=== PATIENT | female | born 1995 | race Caucasian/White ===

== ENCOUNTER 2017-09-04 07:55 | Day surgery (SDC) | payer OTHER ==
[~2017-09-04 07:55] MED LIST: Lactated Ringers 1,000 ML IV SCH; Sodium Chloride 0.9% 10 ML Syringe FLUSH PRN; Sodium Chloride 0.9% 2.5 ML Syringe FLUSH PRN; ceFAZolin 2 GM in Premix Bag 1 BAG IV ONE
--- NOTE | 2017-09-04 08:12 | PCM.PREANE ---
Preanesthetic Assessment - Anesthesia/Transfusion/Family Hx Anesthesia History: Prior Anesthesia Without Reaction Family History of Anesthesia Reaction: No Transfusion History: No Prior Transfusion(s) - Review of Systems General: No Symptoms Pulmonary: No Symptoms Cardiovascular: No Symptoms Gastrointestinal: No Symptoms Neurological: No Symptoms Other: Reports: None - Physical Assessment NPO Status Date: 09/03/17 Height: 1.73 m Weight: 84.822 kg ASA Class: 1 Mental Status: Alert & Oriented x3 Airway Class: Mallampati = 1 Dentition: Reports: Normal Dentition ROM/Head Extension: Full Lungs: Clear to Auscultation, Normal Respiratory Effort Cardiovascular: Regular Rate, Regular Rhythm - Allergies Allergies/Adverse Reactions: Allergies Allergy/AdvReac Type Severity Reaction Status Date / Time No Known Allergies Allergy Verified 09/01/17 11:08 - Anesthesia Plan Pre-Op Medication Ordered: None (PLAN: GA_LMA) - Acknowledgements Anesthesia Type Planned: General Anesthesia Pt an Appropriate Candidate for the Planned Anesthesia: Yes Alternatives and Risks of Anesthesia Discussed w Pt/Guardian: Yes Pt/Guardian Understands and Agrees with Anesthesia Plan: Yes PreAnesthesia Questionnaire Other Gastrointestinal History: hx colitis Neurological History: Reports: Concussion - Past Surgical History Head Surgeries/Procedures: Reports: None GI Surgical History: Reports: Appendectomy - SUBSTANCE USE Smoking Status *Q: Never Smoker Recreational Drug Use History: No - HOME MEDS Home Medications: Home Meds L.acidoph,Paracasei, B.lactis [Probiotic] 1 tab PO ASDIRECTED 09/01/17 [History] Methylcellulose [Fiber] 2 tab PO DAILY 09/01/17 [History] Polyethylene Glycol 3350 [Miralax] 1 dose PO ASDIRECTED 09/01/17 [History] - CURRENT (IN HOUSE) MEDS Current Meds: Current Medications Lactated Ringer's (Ringers, Lactated) 1,000 mls @ 125 mls/hr IV ASDIRECTED [facility] Sodium Chloride (Saline Flush) 10 ml FLUSH ASDIRECTED PRN PRN Reason: Keep Vein Open Sodium Chloride (Saline Flush) 2.5 ml FLUSH ASDIRECTED PRN PRN Reason: Keep Vein Open Discontinued Medications Cefazolin Sodium/Dextrose 2 gm (/ Premix) 50 mls @ 100 mls/hr IV ONETIME ONE Stop: 09/03/17 09:16
[2017-09-04] MEDS ORDERED: Propofol 200 MG/20 ML SDV ONE (08:23)
[2017-09-04] MEDS ORDERED: Lidocaine 2% 5 ML SDV ONE (08:23)
[2017-09-04] MEDS ORDERED: fentaNYL 100 MCG/2 ML SDV ONE (08:23)
[2017-09-04] MEDS ORDERED: Midazolam 1 MG/ML 2 ML SDV ONE (08:23)
[2017-09-04] MEDS ORDERED: ceFAZolin/Dextrose,Iso-Osmotic 2 GM/50 ML Duplex Bag IV ONE (08:48)
[2017-09-04] MEDS ORDERED: ceFAZolin 1 GM Vial ONE (08:52)
[2017-09-04] MEDS ORDERED: Bupivacaine 0.5% 10 ML SDV ONE (08:52)
[2017-09-04] MEDS ORDERED: Glycopyrrolate 0.2 MG/ML SDV ONE ×2 (09:19→09:25)
[2017-09-04] MEDS ORDERED: fentaNYL 100 MCG/2 ML SDV IVPUSH PRN (09:35)
--- NOTE | 2017-09-04 10:05 | PCM.OPNOTE ---
- General Post-Op/Procedure Note Date of Surgery/Procedure: 09/04/17 Operative Procedure(s): Excision left lower quadrant mass Findings: 4.5 x 4 cm firm rubbery mass attached to the fascia by a non-absorbable suture. Pre Op Diagnosis: Left lower quadrant mass Post-Op Diagnosis: same Anesthesia Technique: General LMA Primary Surgeon: Alison Cyr Pathology: left lower quadrant mass Fluid Replacement, Intraop: 900 EBL in mLs: 10 Condition: Good
--- NOTE | 2017-09-04 10:42 | PCM.POSTAN ---
POST ANESTHESIA ASSESSMENT - MENTAL STATUS Mental Status: Alert, Oriented - RESPIRATORY Respiratory Status: Respiratory Rate WNL, Airway Patent, O2 Saturation Stable - CARDIOVASCULAR CV Status: Pulse Rate WNL, Blood Pressure Stable - GASTROINTESTINAL GI Status: No Symptoms - POST OP HYDRATION Hydration Status: Adequate & Stable
--- NOTE | 2017-09-04 13:48 | PCM48HPAN ---
Post Anesthesia Note - EVALUATION WITHIN 48HRS OF ANESTHETIC Vital Signs in Normal Range: Yes Patient Participated in Evaluation: Yes Respiratory Function Stable: Yes Airway Patent: Yes Cardiovascular Function Stable: Yes Hydration Status Stable: Yes Pain Control Satisfactory: Yes Nausea and Vomiting Control Satisfactory: Yes Mental Status Recovered: Yes Resp Rate: 14
--- NOTE | 2017-09-04 14:44 | OR ---
SURGEON: EVELYN GIRON MD DATE OF PROCEDURE: 09/04/2017 PREOPERATIVE DIAGNOSIS: Left lower quadrant abdominal wall mass. POSTOPERATIVE DIAGNOSIS: Left lower quadrant abdominal wall mass. PROCEDURE PERFORMED: Excision of left lower quadrant abdominal wall mass. ANESTHESIA: General LMA. FLUIDS: 900 mL crystalloid. ESTIMATED BLOOD LOSS: 10 mL. FINDINGS: 4.5 x 4 cm firm rubbery mass attached to the fascia at previous incision site. The base of this mass contained a nonabsorbable suture. COMPLICATIONS: None. INDICATIONS: The patient is a 22-year-old female, who has had a left lower quadrant mass ever since an appendectomy. Her postoperative course was complicated by sepsis. Approximately a month to two after this ordeal, she noticed the left lower quadrant mass. It has stayed the same size, but is bothersome and she would like to know what it is. Preoperative imaging showed an area of fatty appearing tissue in the area of concern. It was questionable whether or not this was an incisional hernia. A CT of the abdomen and pelvis just showed some abnormal fat in the subcutaneous tissues, but no hernia. The patient and I discussed possible options for workup and treatment. The patient wanted to undergo excision of the left lower quadrant mass. I consented her for a possible incisional hernia repair versus just an excision of the mass. We discussed the procedure, expected perioperative course, and risks including bleeding, infection, or damage to surrounding structures. The patient verbalized understanding and wishes to proceed. PROCEDURE IN DETAIL: The patient was brought to the operating room and placed on the OR table in supine position. A time-out was completed verifying the patient's name, age, date of , allergies, and procedure to be performed. General LMA anesthesia was induced. The abdomen was prepped and draped in usual standard fashion. The patient and I had previously marked out the area of the mass. I anesthetized the area over the mass with 0.5% Marcaine plain. A 5 cm incision was made overlying this mass. Cautery was used to dissect down the level of the subcutaneous fat. As I got closer to the fascia, I could feel a hard rubbery mass. Using a combination of cautery and Metzenbaum scissors, I sharply dissected the mass free from the surrounding structures. At the level of the fascia, it was densely adhered to the tissues. Once I mobilized the mass adequately enough, I noticed that it was attached to the fascia at the previous incision site. I noted an old Nurolon suture at the base. I clipped this Nurolon suture and was able to free up the mass completely from its surrounding attachments. The mass itself was hard and firm and I did not open it up to explore it. It measured 4.5 x 4 cm in size. It was passed off the field and labeled as left lower quadrant mass. The area where I excised this mass from was marked with a 2-0 Prolene suture for identification in the future and to close the fascia over the site and I removed the old suture. The wound was then copiously irrigated. Cautery was used to obtain hemostasis. The wound was then closed with a running 3-0 Vicryl stitch in the subcutaneous fat layer. The more superficial fat was then closed with interrupted 3-0 Vicryl sutures. The skin was closed with a running 4-0 Monocryl stitch. The patient tolerated the procedure well and was extubated and taken to PACU in stable condition. TORRI CHAUDHARI /[id number] MARCELLA
== END 2017-09-04 11:40 | disposition home or self-care (01) ==
LOC: MW.SDS 07:55
PROVIDERS: ATTEND Surgery
DX: R22.2 Localized swelling, mass and lump, trunk (principal); K52.9 Noninfective gastroenteritis and colitis, unspecified; Z79.899 Other long term (current) drug therapy
CPT/HCPCS: 00400; 81025; 88305; J0690; J2250; J2704; J3010; J7120

== ENCOUNTER 2018-08-29 00:17 | Inpatient (IN) | payer BC ==
[2018-08-29] MEDS ORDERED: Water For Irrigation,Sterile 1,000 ML Container IRR PRN (00:29)
[2018-08-29] MEDS ORDERED: Tranexamic Acid 1,000 MG in Sodium Chloride 0.9% 100 ML IV PRN (00:29)
[2018-08-29] MEDS ORDERED: Terbutaline 1 MG/ML SDV SUBCUT PRN (00:29)
[2018-08-29] MEDS ORDERED: Lidocaine 1% 50 ML MDV INJECT PRN (00:29)
[2018-08-29] MEDS ORDERED: Ondansetron 4 MG/2 ML SDV IV PRN (00:29)
[2018-08-29] MEDS ORDERED: Sodium Chloride 0.9% 2.5 ML Syringe FLUSH PRN (00:29)
[2018-08-29] MEDS ORDERED: Methylergonovine 0.2 MG/1 ML Amp IM PRN (00:29)
[2018-08-29] MEDS ORDERED: Carboprost Tromethamine 250 MCG/1 ML Amp IM PRN (00:29)
[2018-08-29] MEDS ORDERED: Misoprostol 200 MCG Tab PO PRN (00:29)
[2018-08-29] MEDS ORDERED: Sodium Chloride 0.9% 10 ML Syringe FLUSH PRN (00:29)
[2018-08-29] MEDS ORDERED: Sodium Chloride 0.9% 10 ML SDV IV PRN (00:29)
[2018-08-29] MEDS ORDERED: Oxytocin/0.9 % Sodium Chloride 30 UNIT/500 ML BAG IV SCH ×2 (00:30)
[2018-08-29] MEDS: Misoprostol 25 MCG (1/4 of 100 MCG) Tab VAG PRN ×3 (00:59→09:26)
[2018-08-29] MEDS: Butorphanol 1 MG/ML SDV IVPUSH PRN ×3 (10:29→13:30)
[2018-08-29] MEDS: Lactated Ringers 1,000 ML IV SCH ×3 (14:24→23:07)
--- NOTE | 2018-08-29 17:04 | PCM.PREANE ---
Preanesthetic Assessment - Anesthesia/Transfusion/Family Hx Anesthesia History: Prior Anesthesia Without Reaction Family History of Anesthesia Reaction: No Transfusion History: No Prior Transfusion(s) - Review of Systems General: No Symptoms Pulmonary: No Symptoms Cardiovascular: No Symptoms Gastrointestinal: No Symptoms Neurological: No Symptoms Other: Reports: None - Physical Assessment Height: 5 ft 8 in Weight: 100.244 kg ASA Class: 2 Mental Status: Alert & Oriented x3 Airway Class: Mallampati = 2 Dentition: Reports: Normal Dentition Thyro-Mental Finger Breadths: 3 Mouth Opening Finger Breadths: 3 ROM/Head Extension: Full Lungs: Clear to Auscultation, Normal Respiratory Effort Cardiovascular: Regular Rate, Regular Rhythm - Lab Values: Laboratory Last Values WBC 9.83 K/uL (4.0-11.0) 08/29/18 00:48 RBC 4.11 M/uL (4.30-5.90) L 08/29/18 00:48 Hgb 12.3 g/dL (12.0-16.0) 08/29/18 00:48 Hct 37.1 % (36.0-46.0) 08/29/18 00:48 MCV 90.3 fL (80.0-98.0) 08/29/18 00:48 MCH 29.9 pg (27.0-32.0) 08/29/18 00:48 MCHC 33.2 g/dL (31.0-37.0) 08/29/18 00:48 RDW Std Deviation 44.3 fl (28.0-62.0) 08/29/18 00:48 RDW Coeff of Sharmila 14 % (11.0-15.0) 08/29/18 00:48 Plt Count 210 K/uL (150-400) 08/29/18 00:48 MPV 10.90 fL (7.40-12.00) 08/29/18 00:48 Nucleated RBC % 0.0 /100WBC 08/29/18 00:48 Nucleated RBCs # 0 K/uL 08/29/18 00:48 POC Glucose 78 mg/dL (60-110) 08/29/18 13:22 Blood Type A NEGATIVE 08/29/18 00:48 Antibody Screen NEGATIVE 08/29/18 00:48 - Allergies Allergies/Adverse Reactions: Allergies Allergy/AdvReac Type Severity Reaction Status Date / Time adhesive tape Allergy Hives Verified 08/29/18 00:26 - Acknowledgements Anesthesia Type Planned: Epidural Pt an Appropriate Candidate for the Planned Anesthesia: Yes Alternatives and Risks of Anesthesia Discussed w Pt/Guardian: Yes Pt/Guardian Understands and Agrees with Anesthesia Plan: Yes PreAnesthesia Questionnaire HEENT History: Reports: None Cardiovascular History: Reports: None Respiratory History: Reports: None Gastrointestinal History: Reports: GERD Other Gastrointestinal History: hx colitis Genitourinary History: Reports: None [employer] History: Reports: : 1 Para: 0 LMP (Approximate): Musculoskeletal History: Reports: None Neurological History: Reports: Concussion Psychiatric History: Reports: None Endocrine/Metabolic History: Reports: Diabetes, Gestational, Obesity/BMI 30+ Hematologic History: Reports: None Immunologic History: Reports: None Oncologic (Cancer) History: Reports: None Dermatologic History: Reports: None - Infectious Disease History Infectious Disease History: Reports: None - Past Surgical History HEENT Surgical History: Reports: Oral Surgery, Other (See Below) Other HEENT Surgeries/Procedures: wisdom teeth extraction GI Surgical History: Reports: Appendectomy Endocrine Surgical History: Reports: None Neurological Surgical History: Reports: None Dermatological Surgical History: Reports: Other (See Below) - SUBSTANCE USE Smoking Status *Q: Never Smoker Recreational Drug Use History: No - HOME MEDS Home Medications: Home Meds Acetaminophen [Tylenol Extra Strength] 1 - 2 tab PO PRN 08/29/18 [History] Docusate Sodium [Colace] 1 cap PO PRN 08/29/18 [History] Loratadine [Claritin] 1 tab PO PRN 08/29/18 [History] PNV95/Ferrous Fumarate/FA [ Tablet] 1 tab PO DAILY 08/29/18 [History] - CURRENT (IN HOUSE) MEDS Current Meds: Current Medications Butorphanol Tartrate (Stadol) 1 mg IVPUSH Q1H PRN PRN Reason: Pain Last Admin: 08/29/18 13:30 Dose: 1 mg Carboprost Tromethamine (Hemabate Ds) 250 mcg IM ASDIRECTED PRN PRN Reason: Post Hemorrhage Lactated Ringer's (Ringers, Lactated) 1,000 mls @ 150 mls/hr IV ASDIRECTED RODRIGUEZ Last Admin: 08/29/18 16:55 Dose: 150 mls/hr Oxytocin/Sodium Chloride (Oxytocin 30 Unit/500 Ml-Ns) 30 unit in 500 mls @ 500 mls/hr IV TITRATE RODRIGUEZ Oxytocin/Sodium Chloride (Oxytocin 30 Unit/500 Ml-Ns) 30 unit in 500 mls @ 2 mls/hr IV TITRATE RODRIGUEZ; Protocol Last Titration: 08/29/18 16:10 Dose: 6 munits/min, 6 mls/hr Tranexamic Acid 1,000 mg/ (Sodium Chloride) 110 mls @ 660 mls/hr IV ONETIME PRN PRN Reason: Bleeding Lidocaine HCl (Xylocaine 1%) 50 ml INJECT ONETIME PRN PRN Reason: Laceration repair Methylergonovine Maleate (Methergine) 0.2 mg IM ASDIRECTED PRN PRN Reason: Post Hemorrhage Misoprostol (Cytotec) 200 mcg PO ONETIME PRN PRN Reason: Post Hemorrhage Misoprostol (Cytotec) 25 mcg VAG Q4H PRN PRN Reason: Cervical Ripening Last Admin: 08/29/18 09:26 Dose: 25 mcg Ondansetron HCl (Zofran) 4 mg IV Q6H PRN PRN Reason: Nausea/Vomiting Sodium Chloride (Saline Flush) 10 ml FLUSH ASDIRECTED PRN PRN Reason: Keep Vein Open Sodium Chloride (Saline Flush) 2.5 ml FLUSH ASDIRECTED PRN PRN Reason: Keep Vein Open Sodium Chloride (Normal Saline) 10 ml IV ASDIRECTED PRN PRN Reason: IV Use Sterile Water (Sterile Water For Irrigation) 1,000 ml IRR ASDIRECTED PRN PRN Reason: delivery Terbutaline Sulfate (Brethine) 0.25 mg SUBCUT ASDIRECTED PRN PRN Reason: Tacysystole
[2018-08-29] MEDS ORDERED: Lidocaine HCl/EPINEPHrine 5 ML IJ ONE (17:08)
--- NOTE | 2018-08-30 00:47 | PCM.OPNOTE ---
- General Post-Op/Procedure Note Date of Surgery/Procedure: 08/30/18 Operative Procedure(s): /1st MLL repaired Findings: Viable female APGARs 8, 9 weight 3540 gm. Spontaneous delivery intact placenta with 3V cord Pre Op Diagnosis: 39/4 week IUP. Gestational diabetes Post-Op Diagnosis: Same Anesthesia Technique: Epidural Primary Surgeon: Yanet Garcia EBL in mLs: 300 Complications: none known Condition: Good Free Text/Narrative:: Dictation [id number]
[2018-08-30] MEDS ORDERED: Witch Hazel Medicated Pads 40/Jar TOP PRN (00:48)
[2018-08-30] MEDS ORDERED: Lanolin 100% Cream 7 GM Tube TOP PRN (00:48)
[2018-08-30] MEDS ORDERED: Ibuprofen 400 MG Tab PO PRN (00:48)
[2018-08-30] MEDS ORDERED: Docusate Sodium 100 MG Cap PO PRN (00:48)
[2018-08-30] MEDS ORDERED: oxyCODONE 5 MG Tab PO PRN (00:48)
[2018-08-30] MEDS ORDERED: Benzocaine/Menthol 20%-0.5% Spray 78 GM Cannister TOP PRN (00:48)
[2018-08-30] MEDS ORDERED: Bisacodyl 10 MG Supp RECTAL PRN (00:48)
[2018-08-30] MEDS ORDERED: Acetaminophen 500 MG Tab PO PRN ×2 (00:48)
[2018-08-30] MEDS: Ibuprofen 800 MG Tab PO PRN ×2 (07:17→23:39)
--- NOTE | 2018-08-30 08:04 | OR ---
SURGEON: Yaent Garcia M.D. DATE OF PROCEDURE: 08/30/2018 PREOPERATIVE DIAGNOSES: 1. 39 and 4 weeks' intrauterine . 2. Induction of labor for gestational diabetes. POSTOPERATIVE DIAGNOSES: 1. 39 and 4 weeks' intrauterine . 2. Induction of labor for gestational diabetes. PROCEDURE: Spontaneous vaginal delivery, first-degree midline laceration repaired. ANESTHESIA: Epidural. ESTIMATED BLOOD LOSS: 300 mL. FINDINGS: Viable female, scores 8 at 1 minute and 9 at 5 minutes, weight of 3540 g. Spontaneous delivery, intact placenta, 3-vessel cord. DISPOSITION: Infant to [facility], mom in LDRP. PROCEDURE IN DETAIL: Shyla is a 23-year-old, , at 39 and 3 weeks' gestational age upon her admission on the faculty dean of 08/29/2018 for induction of labor for gestational diabetes. Initially, the patient was found to be closed, thick, -3; therefore, was initially initiated on Cytotec ripening after reactive NST was obtained. Glucoses were monitored throughout the induction process, remained normal except for one wich was slightly low at 64, responded nicely to some oral intake. The patient responded to 3 doses of Cytotec and mechanical dilation with cervical balloon. In the late afternoon of 08/29/2018, the balloon was extruded. She had spontaneous rupture of membranes. Clear fluid was noted. She was on Pitocin induction at this point. heart tones remained category 1. The patient continued to progress thereafter and shortly before midnight, was found to be complete, 100% effaced, +2 station. Began pushing efforts, pushed readily. Within the hour was a +3 station, I was called for delivery. Upon my arrival, the patient was placed in modified dorsal lithotomy position, was prepped and draped in the usual aseptic manner, continued with pushing efforts, and was able to deliver 's head atraumatically, spontaneously, followed by anterior shoulder, posterior shoulder, and remainder of the body without difficulty. 's oropharynx and nares were bulb suctioned. was handed off to her mother with attending nursing staff at her side. After delay, cord was clamped x2 and cut. Cord arterial, cord venous, cord blood sampling were obtained. Light pressure was applied while the placenta was delivered spontaneously intact. Vigorous fundal uterine massage was then applied while 30 units of Pitocin was delivered in 500 mL of IV fluid. Upon inspection of cervix, vaginal sidewalls, and perineum, there was found to be a first-degree midline laceration, which was repaired using 3-0 Vicryl in the usual fashion. Uterus remained firm. Hemostasis evident. Sponge count, instrument count, and needle count were correct. The patient remained in LDRP, in Nursery. KWASI / FARA /[id number] MTDD
--- NOTE | 2018-08-30 09:07 | PCM48HPAN ---
Post Anesthesia Note - EVALUATION WITHIN 48HRS OF ANESTHETIC Vital Signs in Normal Range: Yes Patient Participated in Evaluation: Yes Respiratory Function Stable: Yes Airway Patent: Yes Cardiovascular Function Stable: Yes Hydration Status Stable: Yes Pain Control Satisfactory: Yes Nausea and Vomiting Control Satisfactory: Yes Mental Status Recovered: Yes Resp Rate: 16
--- NOTE | 2018-08-30 11:05 | PCM.PNPP ---
- General Info Date of Service: 08/30/18 Functional Status: Reports: Pain Controlled, Tolerating Diet, Ambulating, Urinating - Review of Systems General: Reports: Fatigue. Denies: Fever, Weakness Pulmonary: Denies: Shortness of Breath Cardiovascular: Denies: Chest Pain, Palpitations, Lightheadedness Gastrointestinal: Reports: No Symptoms Genitourinary: Reports: No Symptoms Musculoskeletal: Reports: No Symptoms Skin: Reports: No Symptoms Neurological: Reports: No Symptoms Psychiatric: Reports: No Symptoms - General Info Date of Service: 08/30/18 - Patient Data Vital Signs - Most Recent: Last Vital Signs Temp 36.6 C 08/30/18 07:10 Pulse 76 08/30/18 07:10 Resp 16 08/30/18 09:07 BP 132/86 08/30/18 07:10 Pulse Ox 94 L 08/30/18 07:10 Weight - Most Recent: 100.244 kg I&O - Last 24 Hours: Intake & Output 08/29/18 08/30/18 08/30/18 22:59 06:59 14:59 Output Total 775 Balance -775 Lab Results - Last 24 Hours: Laboratory Results - last 24 hr 08/29/18 08/29/18 08/29/18 Range/Units 13:22 16:57 21:03 Cord ABG pH (7.18-7.38) Cord ABG Base Excess (-10--2) Cord VBG pH (7.25-7.45) Cord VBG Base Excess (-10--2) POC Glucose 78 64 74 (60-110) mg/dL Screen (NEGATIVE) RhIG Candidate? Rhogam Indicated 08/30/18 08/30/18 Range/Units 00:24 01:48 Cord ABG pH 7.159 L (7.18-7.38) Cord ABG Base Excess -8 (-10--2) Cord VBG pH 7.219 L (7.25-7.45) Cord VBG Base Excess -8 (-10--2) POC Glucose (60-110) mg/dL Screen NEGATIVE (NEGATIVE) RhIG Candidate? YES Rhogam Indicated YES, BABY RH POS H Med Orders - Current: Current Medications Acetaminophen (Tylenol Extra Strength) 500 mg PO Q4H PRN PRN Reason: Pain Acetaminophen (Tylenol Extra Strength) 1,000 mg PO Q4H PRN PRN Reason: Pain Benzocaine/Menthol (Dermoplast Pain Relief 20%-0.5% Jermyn) 78 gm TOP ASDIRECTED PRN PRN Reason: Perineal Comfort Measure Last Admin: 08/30/18 02:16 Dose: 1 can Bisacodyl (Dulcolax) 10 mg RECTAL ONETIME PRN PRN Reason: Constipation Carboprost Tromethamine (Hemabate Ds) 250 mcg IM ASDIRECTED PRN PRN Reason: Post Hemorrhage Docusate Sodium (Colace) 100 mg PO BID PRN PRN Reason: Constipation Emollient Ointment (Lansinoh Hpa) 0 gm TOP ASDIRECTED PRN PRN Reason: Sore Nipples Lactated Ringer's (Ringers, Lactated) 1,000 mls @ 150 mls/hr IV ASDIRECTED RODRIGUEZ Last Admin: 08/29/18 23:07 Dose: 150 mls/hr Oxytocin/Sodium Chloride (Oxytocin 30 Unit/500 Ml-Ns) 30 unit in 500 mls @ 500 mls/hr IV TITRATE RODRIGUEZ Oxytocin/Sodium Chloride (Oxytocin 30 Unit/500 Ml-Ns) 30 unit in 500 mls @ 2 mls/hr IV TITRATE RODRIGUEZ; Protocol Last Titration: 08/30/18 00:25 Dose: 999 mls/hr Tranexamic Acid 1,000 mg/ (Sodium Chloride) 110 mls @ 660 mls/hr IV ONETIME PRN PRN Reason: Bleeding Ibuprofen (Motrin) 400 mg PO Q4H PRN PRN Reason: Pain Ibuprofen (Motrin) 800 mg PO Q6H PRN PRN Reason: Pain Last Admin: 08/30/18 07:17 Dose: 800 mg Methylergonovine Maleate (Methergine) 0.2 mg IM ASDIRECTED PRN PRN Reason: Post Hemorrhage Ondansetron HCl (Zofran) 4 mg IV Q6H PRN PRN Reason: Nausea/Vomiting Last Admin: 08/29/18 21:09 Dose: 4 mg Oxycodone HCl (Oxycodone) 5 mg PO Q2H PRN PRN Reason: Pain Sodium Chloride (Saline Flush) 10 ml FLUSH ASDIRECTED PRN PRN Reason: Keep Vein Open Sodium Chloride (Saline Flush) 2.5 ml FLUSH ASDIRECTED PRN PRN Reason: Keep Vein Open Sodium Chloride (Normal Saline) 10 ml IV ASDIRECTED PRN PRN Reason: IV Use Sterile Water (Sterile Water For Irrigation) 1,000 ml IRR ASDIRECTED PRN PRN Reason: delivery Nathanael Jade (Tucks) 1 pad TOP ASDIRECTED PRN PRN Reason: comfort care Discontinued Medications Butorphanol Tartrate (Stadol) 1 mg IVPUSH Q1H PRN PRN Reason: Pain Stop: 08/30/18 00:47 Last Admin: 08/29/18 13:30 Dose: 1 mg Fentanyl/Bupivacaine HCl (Gmtnvbzg-Yrdwa-Yo 2 Mcg/Ml-0.125%) Confirm Administered Dose 100 mls @ as directed .ROUTE .STK-MED ONE Stop: 08/29/18 17:09 Last Admin: 08/29/18 20:33 Dose: Not Given Lidocaine HCl (Xylocaine 1%) 50 ml INJECT ONETIME PRN PRN Reason: Laceration repair Lidocaine/Epinephrine (Lidocaine 1.5%-Epi 1:200,000) Confirm Administered Dose 5 ml IJ .STK-MED ONE Stop: 08/29/18 17:09 Last Admin: 08/29/18 20:33 Dose: Not Given Misoprostol (Cytotec) 200 mcg PO ONETIME PRN PRN Reason: Post Hemorrhage Misoprostol (Cytotec) 25 mcg VAG Q4H PRN PRN Reason: Cervical Ripening Last Admin: 08/29/18 09:26 Dose: 25 mcg Terbutaline Sulfate (Brethine) 0.25 mg SUBCUT ASDIRECTED PRN PRN Reason: Tacysystole - Infant Interaction Support Person: - Recovery Exam Fundal Tone: Firm Fundal Level: At Umbilicus Fundal Placement: Midline Lochia Amount: Scant Lochia Color: Rubra/Red Perineum Description: Other (see below) Other Perinuem Description: 1st degree laceration Episiotomy/Laceration: Approximated Bladder Status: Voiding - Exam General: Alert, Oriented Lungs: Normal Respiratory Effort Cardiovascular: Regular Rate, Regular Rhythm GI/Abdominal Exam: Normal Bowel Sounds, Soft Extremities: Pedal Edema (trace). No: Ann-Marie's Sign Skin: Warm, Dry, Intact Neurological: No New Focal Deficit Psy/Mental Status: Alert, Normal Affect, Normal Mood - Problem List & Annotations (1) Vaginal delivery SNOMED Code(s): 129491710 Code(s): O80 - ENCOUNTER FOR FULL-TERM UNCOMPLICATED DELIVERY Status: Acute Current Visit: Yes - Problem List Review Problem List Initiated/Reviewed/Updated: Yes - My Orders Last 24 Hours: My Active Orders 08/30/18 00:48 Patient Status [ADT] Routine May Shower [RC] ASDIRECTED Up ad Nubia [RC] ASDIRECTED Vital Signs [RC] PER UNIT ROUTINE Acetaminophen [Tylenol Extra Strength] 1,000 mg PO Q4H PRN Acetaminophen [Tylenol Extra Strength] 500 mg PO Q4H PRN Benzocaine/Menthol [Dermoplast Pain Relief 20%-0.5% Jermyn] 78 gm TOP ASDIRECTED PRN Bisacodyl [Dulcolax] 10 mg RECTAL ONETIME PRN Docusate Sodium [Colace] 100 mg PO BID PRN Ibuprofen [Motrin] 400 mg PO Q4H PRN Ibuprofen [Motrin] 800 mg PO Q6H PRN Lanolin [Lansinoh HPA] See Dose Instructions TOP ASDIRECTED PRN Witch Kalie [Tucks] 1 pad TOP ASDIRECTED PRN oxyCODONE 5 mg PO Q2H PRN Assess Lochia [WOMSER] Per Unit Routine Assess Uterine Involution [WOMSER] Per Unit Routine Peripheral IV Discontinue [OM.PC] Routine 08/30/18 00:49 Ice Therapy [OM.PC] Per Unit Routine Perineal Care [OM.PC] Per Unit Routine Sitz Bath [OM.PC] Per Unit Routine 08/30/18 01:48 SCREEN [BBK] Routine RH IMMUNE GLOBULIN [BBK] Routine RHOGAM, [RHIG WORKUP, ] [BBK] Routine 08/30/18 12:00 HEMOGLOBIN/HEMATOCRIT,HH [HEME] Routine 08/30/18 Breakfast Regular Diet [DIET] - Assessment Assessment:: PPD 0 status post /1st MLL GDM - Plan Plan:: Continue PP cares.
--- NOTE | 2018-08-31 11:08 | PCM.PNPP ---
- General Info Date of Service: 08/31/18 Functional Status: Reports: Pain Controlled, Tolerating Diet, Ambulating, Urinating - Review of Systems General: Denies: Fever, Weakness, Fatigue Pulmonary: Denies: Shortness of Breath Cardiovascular: Denies: Chest Pain, Palpitations, Lightheadedness Gastrointestinal: Denies: Abdominal Pain, Nausea, Vomiting Genitourinary: Reports: No Symptoms Musculoskeletal: Reports: No Symptoms Skin: Reports: No Symptoms Neurological: Reports: No Symptoms Psychiatric: Reports: No Symptoms - General Info Date of Service: 08/31/18 - Patient Data Vital Signs - Most Recent: Last Vital Signs Temp 36.2 C 08/31/18 07:15 Pulse 55 L 08/31/18 07:15 Resp 16 08/31/18 07:15 BP 122/84 08/31/18 07:15 Pulse Ox 95 08/31/18 07:15 Weight - Most Recent: 100.244 kg I&O - Last 24 Hours: Intake & Output 08/30/18 08/31/18 08/31/18 22:59 06:59 14:59 Intake Total 2 Balance 2 Lab Results - Last 24 Hours: Laboratory Results - last 24 hr 08/30/18 08/30/18 Range/Units 01:48 12:12 Hgb 12.4 (12.0-16.0) g/dL Hct 37.5 (36.0-46.0) % Screen NEGATIVE (NEGATIVE) RhIG Candidate? YES Rhogam Indicated YES, BABY RH POS H Med Orders - Current: Current Medications Acetaminophen (Tylenol Extra Strength) 500 mg PO Q4H PRN PRN Reason: Pain Acetaminophen (Tylenol Extra Strength) 1,000 mg PO Q4H PRN PRN Reason: Pain Benzocaine/Menthol (Dermoplast Pain Relief 20%-0.5% [place]) 78 gm TOP ASDIRECTED PRN PRN Reason: Perineal Comfort Measure Last Admin: 08/30/18 02:16 Dose: 1 can Bisacodyl (Dulcolax) 10 mg RECTAL ONETIME PRN PRN Reason: Constipation Carboprost Tromethamine (Hemabate Ds) 250 mcg IM ASDIRECTED PRN PRN Reason: Post Hemorrhage Docusate Sodium (Colace) 100 mg PO BID PRN PRN Reason: Constipation Emollient Ointment (Lansinoh Hpa) 0 gm TOP ASDIRECTED PRN PRN Reason: Sore Nipples Lactated Ringer's (Ringers, Lactated) 1,000 mls @ 150 mls/hr IV ASDIRECTED RODRIGUEZ Last Admin: 08/29/18 23:07 Dose: 150 mls/hr Oxytocin/Sodium Chloride (Oxytocin 30 Unit/500 Ml-Ns) 30 unit in 500 mls @ 500 mls/hr IV TITRATE RODRIGUEZ Oxytocin/Sodium Chloride (Oxytocin 30 Unit/500 Ml-Ns) 30 unit in 500 mls @ 2 mls/hr IV TITRATE RODRIGUEZ; Protocol Last Titration: 08/30/18 00:25 Dose: 999 mls/hr Tranexamic Acid 1,000 mg/ (Sodium Chloride) 110 mls @ 660 mls/hr IV ONETIME PRN PRN Reason: Bleeding Ibuprofen (Motrin) 400 mg PO Q4H PRN PRN Reason: Pain Ibuprofen (Motrin) 800 mg PO Q6H PRN PRN Reason: Pain Last Admin: 08/30/18 23:39 Dose: 800 mg Methylergonovine Maleate (Methergine) 0.2 mg IM ASDIRECTED PRN PRN Reason: Post Hemorrhage Ondansetron HCl (Zofran) 4 mg IV Q6H PRN PRN Reason: Nausea/Vomiting Last Admin: 08/29/18 21:09 Dose: 4 mg Oxycodone HCl (Oxycodone) 5 mg PO Q2H PRN PRN Reason: Pain Sodium Chloride (Saline Flush) 10 ml FLUSH ASDIRECTED PRN PRN Reason: Keep Vein Open Sodium Chloride (Saline Flush) 2.5 ml FLUSH ASDIRECTED PRN PRN Reason: Keep Vein Open Sodium Chloride (Normal Saline) 10 ml IV ASDIRECTED PRN PRN Reason: IV Use Sterile Water (Sterile Water For Irrigation) 1,000 ml IRR ASDIRECTED PRN PRN Reason: delivery Witch Kalie (Tucks) 1 pad TOP ASDIRECTED PRN PRN Reason: comfort care Discontinued Medications Butorphanol Tartrate (Stadol) 1 mg IVPUSH Q1H PRN PRN Reason: Pain Stop: 08/30/18 00:47 Last Admin: 08/29/18 13:30 Dose: 1 mg Fentanyl/Bupivacaine HCl (Nfspowcu-Xdeky-Xc 2 Mcg/Ml-0.125%) Confirm Administered Dose 100 mls @ as directed .ROUTE .STK-MED ONE Stop: 08/29/18 17:09 Last Admin: 08/29/18 20:33 Dose: Not Given Lidocaine HCl (Xylocaine 1%) 50 ml INJECT ONETIME PRN PRN Reason: Laceration repair Lidocaine/Epinephrine (Lidocaine 1.5%-Epi 1:200,000) Confirm Administered Dose 5 ml IJ .STK-MED ONE Stop: 08/29/18 17:09 Last Admin: 08/29/18 20:33 Dose: Not Given Misoprostol (Cytotec) 200 mcg PO ONETIME PRN PRN Reason: Post Hemorrhage Misoprostol (Cytotec) 25 mcg VAG Q4H PRN PRN Reason: Cervical Ripening Last Admin: 08/29/18 09:26 Dose: 25 mcg Terbutaline Sulfate (Brethine) 0.25 mg SUBCUT ASDIRECTED PRN PRN Reason: Tacysystole - Infant Interaction Support Person: - Recovery Exam Fundal Tone: Firm Fundal Level: 2 Fingerbreadths Below Umbilicus Fundal Placement: Midline Lochia Amount: Scant Lochia Color: Rubra/Red Perineum Description: Other (see below) Other Perinuem Description: 1st degree laceration, repaired Episiotomy/Laceration: Approximated Bladder Status: Voiding Urinary Elimination: Voided - Exam General: Alert, Oriented Lungs: Normal Respiratory Effort Cardiovascular: Regular Rate, Regular Rhythm GI/Abdominal Exam: Normal Bowel Sounds, Soft Extremities: Pedal Edema (trace pedal edema). 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 Glucose was 76 today. DIscharge to home. Follow up at [facility] 6 weeks. Needs 75 gm GTT at PP visit. Infection and bleeding warnings reviewed. Discharge instructions reviewed.
== END 2018-08-31 12:05 | disposition home or self-care (01) | DRG 560 ==
LOC: MW.OBCHECK 00:17 → MW.OB 00:19 → MW.OBCHECK 00:29 → MW.OB 00:29 → OBSVTOIN 08-30 00:24 → MW.OB 08-30 02:32
PROVIDERS: ADMIT Obstetrics & Gynecology; ATTEND Obstetrics & Gynecology
PROC: 00HU33Z Insertion of Infusion Device into Spinal Canal, Percutaneous Approach (ICD-10-PCS; 2018-08-29)
PROC: 3E0R3BZ Introduction of Anesthetic Agent into Spinal Canal, Percutaneous Approach (ICD-10-PCS; 2018-08-29)
PROC: 0HQ9XZZ Repair Perineum Skin, External Approach (ICD-10-PCS; principal; 2018-08-30)
PROC: 3E033VJ Introduction of Other Hormone into Peripheral Vein, Percutaneous Approach (ICD-10-PCS; principal; 2018-08-30)
PROC: 0U7C7ZZ Dilation of Cervix, Via Natural or Artificial Opening (ICD-10-PCS; principal; 2018-08-30)
PROC: 3E0P7VZ Introduction of Hormone into Female Reproductive, Via Natural or Artificial Opening (ICD-10-PCS; principal; 2018-08-30)
PROC: 10E0XZZ Delivery of Products of Conception, External Approach (ICD-10-PCS; principal; 2018-08-30)
PROC: 6A550ZT Pheresis of Cord Blood Stem Cells, Single (ICD-10-PCS; principal; 2018-08-30)
DX: O24.420 Gestational diabetes mellitus in childbirth, diet controlled (principal); O70.0 First degree perineal laceration during delivery; Z37.0 Single live birth; Z3A.39 39 weeks gestation of pregnancy; Z88.8 Allergy status to other drugs, medicaments and biological substances; O99.214 Obesity complicating childbirth; E66.9 Obesity, unspecified; O99.62 Diseases of the digestive system complicating childbirth; K21.9 Gastro-esophageal reflux disease without esophagitis
CPT/HCPCS: 36415; 51702; 59025; 59200; 59409; 82803; 82962; 85014; 85018; 85027; 85460; 86850; 86900; 86901; A9270-GY; J0595; J2405; J2590; J2792; J7120

== ENCOUNTER 2020-01-26 08:24 | Emergency (ER) | payer BC, OTHER ==
[2020-01-26] MEDS ORDERED: Albuterol/Ipratropium 3.0-0.5 MG/3 ML Neb Soln ONE (08:34)
[2020-01-26 09:06] LABS: BLOOD UREA NITROGEN,BUN 9 mg/dL (7.0-18.0); CARBON DIOXIDE,CO2 24.6 mmol/L (21.0-32.0); CHLORIDE,CL 104 mmol/L (98-107); GLUCOSE RANDOM 98 mg/dL (74-106); POTASSIUM,K 4.1 mmol/L (3.5-5.1); SODIUM,NA 140 mmol/L (136-145)
--- NOTE | 2020-01-26 09:07 | EDM.PDOC ---
ED [facility] GENERAL MEDICAL PROBLEM - General Chief Complaint: Respiratory Problem Stated Complaint: SOB CHEST PAIN Time Seen by Provider: 01/26/20 08:25 Source of Information: Reports: Patient History Limitations: Reports: No Limitations - History of Present Illness INITIAL COMMENTS - FREE TEXT/NARRATIVE: 25-year-old female with no pertinent past medical history presenting with chest pain, shortness of breath, and infectious symptoms. Patient reports a 4-day history of sore throat, nonproductive cough, and fatigue. This morning, around 5:00 in the morning she woke up with shortness of breath. She reports a 2-day history of left-sided chest pain radiating around to the left flank. Denies neck stiffness, sputum production, hemoptysis, leg swelling, recent surgery or immobilization or long travel, history of venous thromboembolism, history of malignancy. Denies abdominal pain, nausea, vomiting, diarrhea, dysuria. ROS: A 10-point review of systems was negative, except as noted in the HPI (or in the ROS section of this note). Past medical history: Reviewed, no additional pertinent history. Surgical history: Reviewed in system, no additional pertinent history. Social history: Reviewed in system, no additional pertinent history. Family history: Reviewed in system, no additional pertinent history. PHYSICAL EXAM Vital signs reviewed. Nursing notes reviewed. Constitutional: Awake, alert, non-distressed. Head: Normocephalic, atraumatic. Eyes: EOMI, conjunctiva normal, no discharge, no scleral icterus. Ears, Nose, Throat: External ears and nose normal, moist oral mucosa. Uvula midline, no tracheal deviation. No intraoral swelling appreciated. Hoarse voice. Neck: Supple, full range of motion. Cardiovascular: Tachycardic, 2+ radial pulse, capillary refill less than 2 seconds. Pulmonary: normal work of breathing, no accessory muscle use. CTA BL. Abdomen/GI: Soft, nontender, nondistended, no guarding or rigidity, no masses. Musculoskeletal: No deformities. Integumentary: Appropriate color for ethnicity, warm, dry, no pallor or jaundice, no rash. Neurologic: Alert, answering questions appropriately, normal speech, no facial droop, moving all extremities well. Psychiatric: Appropriate mood and affect, normal thought process. Throat Pain Score (Numeric/FACES): 6 - Related Data Allergies Allergy/AdvReac Type Severity Reaction Status Date / Time adhesive tape Allergy Hives Verified 01/26/20 08:37 Home Meds: Home Meds . 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: Musculoskeletal History: Reports: None Neurological History: Reports: Concussion Psychiatric History: Reports: None Endocrine/Metabolic History: Reports: Diabetes, Gestational, Obesity/BMI 30+ Hematologic History: Reports: None Immunologic History: Reports: None Oncologic (Cancer) History: Reports: None Dermatologic History: Reports: None - Infectious Disease History Infectious Disease History: Reports: None - Past Surgical History Head Surgeries/Procedures: Reports: None HEENT Surgical History: Reports: Oral Surgery, Other (See Below) Other HEENT Surgeries/Procedures: wisdom teeth extraction GI Surgical History: Reports: Appendectomy Endocrine Surgical History: Reports: None Neurological Surgical History: Reports: None Dermatological Surgical History: Reports: Other (See Below) Social & Family History - Family History Cardiac: Reports: Hypertension, Other (See Below) Other Cardiac Family History: varicose veins OBGYN: Reports: Neurological: Reports: CVA Endocrine/Metabolic: Reports: Diabetes, type II Oncologic: Reports: Other (See Below) Other Oncologic Family History: multiple myeloma - Tobacco Use Smoking Status *Q: Never Smoker - Caffeine Use Caffeine Use: Reports: Coffee, Tea ED ROS GENERAL - Review of Systems Review Of Systems: See Below ED EXAM, GENERAL - Physical Exam Exam: See Below EKG INTERPRETATION EKG Interpretation Comments: 12-Lead ECG Interpretation Acquired: 9:21 AM Rhythm: Sinus rhythm Rate: 90 bpm [place]: Normal Intervals: Normal Ectopy: None Ischemic Changes: None apparent RV Strain: No obvious RV strain pattern. ST Segments/T-Waves: No notable changes Interpretation: Unremarkable Course - Vital Signs Text/Narrative:: 25-year-old female presenting with sore throat, hoarse voice, chest discomfort, shortness of breath, cough. Differential diagnosis includes but is not limited to: Viral URI, COVID-19, pneumonia, croup, subglottic edema, sepsis, pulmonary embolism, acute coronary syndrome, etc. Twelve-lead EKG is nonischemic. CBC reassuring. D-dimer negative. Venous blood gas shows mild respiratory alkalosis. Electrolytes and renal function reassuring. Negative troponin. Negative test. Positive COVID swab test. Chest x-rays showed no acute pulmonary findings but did demonstrate slight tapering of the upper airway concerning for subglottic edema. We will obtain a CT pulmonary angiogram given pleuritic left-sided chest pain with positive COVID, there is concern for prothrombotic state. We will also image the neck soft tissues to evaluate for laryngeal edema. 1143: CT pulmonary angiogram negative. CT soft tissue neck demonstrates severe subglottic narrowing caused by asymmetric soft tissue thickening, also noted prominent supraglottic soft tissue swelling. The epiglottis was not well visualized, partially possibly due to surrounding soft tissue edema. Giving racemic epinephrine nebulizer. I did speak with the on-call ENT physician at [facility] who reviewed the case by phone and the CT images. We will plan to administer IV ceftriaxone alone with IV dexamethasone given airway edema. No indication for emergent intubation at this point given lack of stridor, handling secretions well, supple neck, no accessory muscle use. I did perform bedside flexible fiberoptic oropharyngoscopy that showed no swelling of the oropharynx, hypopharynx, or laryngeal inlet. Will need ENT evaluation. I attempted to transfer to all available hospitals in [place] with ENT - [facility], [facility], [facility], [facility], and [facility]. No bed availability at [place] facilities. I was able to secure acceptance at the [facility] in [place]. Originally considered ground EMS transport but given distance/transport time and need for airway monitoring, would favor air transport via fixed wing aircraft. Transferred to air medical crew in good condition. Last Recorded V/S: Last Vital Signs Temp 36.7 C 01/26/20 08:38 Pulse 94 01/26/20 09:48 Resp 18 01/26/20 09:48 BP 133/67 01/26/20 09:48 Pulse Ox 98 01/26/20 09:48 - Orders/Labs/Meds Labs: Laboratory Tests 01/26/20 01/26/20 01/26/20 Range/Units 08:35 08:35 08:35 WBC 7.14 (4.0-11.0) K/uL RBC 4.90 (4.30-5.90) M/uL Hgb 14.3 (12.0-16.0) g/dL Hct 43.3 (36.0-46.0) % MCV 88.4 (80.0-98.0) fL MCH 29.2 (27.0-32.0) pg MCHC 33.0 (31.0-37.0) g/dL RDW Std Deviation 39.2 (28.0-62.0) fl RDW Coeff of Sharmila 12 (11.0-15.0) % Plt Count 217 (150-400) K/uL MPV 10.30 (7.40-12.00) fL Neut % (Auto) 60.9 (48.0-80.0) % Lymph % (Auto) 25.8 (16.0-40.0) % [place] % (Auto) 12.9 (0.0-15.0) % Eos % (Auto) 0.3 (0.0-7.0) % Baso % (Auto) 0.1 (0.0-1.5) % Neut # (Auto) 4.4 (1.4-5.7) K/uL Lymph # (Auto) 1.8 (0.6-2.4) K/uL [place] # (Auto) 0.9 H (0.0-0.8) K/uL Eos # (Auto) 0.0 (0.0-0.7) K/uL Baso # (Auto) 0.0 (0.0-0.1) K/uL Nucleated RBC % 0.0 /100WBC Nucleated RBCs # 0 K/uL D-Dimer, Quantitative (0.0-0.50) mg/L FEU VBG pH (7.31-7.41) VBG pCO2 (35-45) mmHG VBG pO2 (30-40) mmHG VBG HCO3 (22-30) mEq/L VBG Total CO2 (41-51) mmol/L VBG Base Excess (-3.0-3.0) Sodium 140 (136-145) mmol/L Potassium 4.1 (3.5-5.1) mmol/L Chloride 104 (98-107) mmol/L Carbon Dioxide 24.6 (21.0-32.0) mmol/L BUN 9 (7.0-18.0) mg/dL Creatinine 1.0 (0.6-1.0) mg/dL Est Cr Clr Drug Dosing 83.63 mL/min Estimated GFR (MDRD) > 60.0 ml/min Glucose 98 (74-106) mg/dL Calcium 9.2 (8.5-10.1) mg/dL Total Bilirubin 0.4 (0.2-1.0) mg/dL AST 15 (15-37) IU/L ALT 17 (14-63) IU/L Alkaline Phosphatase 64 (46-116) U/L Troponin I < 0.050 (0.000-0.056) ng/mL Total Protein 8.2 (6.4-8.2) g/dL Albumin 4.6 (3.4-5.0) g/dL Globulin 3.6 (2.6-4.0) g/dL Albumin/Globulin Ratio 1.3 (0.9-1.6) HCG, Qual NEGATIVE (NEG) SARS CoV-2 RNA Rapid AJAY (NEGATIVE) 01/26/20 01/26/20 01/26/20 Range/Units 08:35 09:12 09:17 WBC (4.0-11.0) K/uL RBC (4.30-5.90) M/uL Hgb (12.0-16.0) g/dL Hct (36.0-46.0) % MCV (80.0-98.0) fL MCH (27.0-32.0) pg MCHC (31.0-37.0) g/dL RDW Std Deviation (28.0-62.0) fl RDW Coeff of Sharmila (11.0-15.0) % Plt Count (150-400) K/uL MPV (7.40-12.00) fL Neut % (Auto) (48.0-80.0) % Lymph % (Auto) (16.0-40.0) % [place] % (Auto) (0.0-15.0) % Eos % (Auto) (0.0-7.0) % Baso % (Auto) (0.0-1.5) % Neut # (Auto) (1.4-5.7) K/uL Lymph # (Auto) (0.6-2.4) K/uL [place] # (Auto) (0.0-0.8) K/uL Eos # (Auto) (0.0-0.7) K/uL Baso # (Auto) (0.0-0.1) K/uL Nucleated RBC % /100WBC Nucleated RBCs # K/uL D-Dimer, Quantitative 0.36 (0.0-0.50) mg/L FEU VBG pH 7.47 H (7.31-7.41) VBG pCO2 31 L (35-45) mmHG VBG pO2 27 L (30-40) mmHG VBG HCO3 22 (22-30) mEq/L VBG Total CO2 20 L (41-51) mmol/L VBG Base Excess -0.8 (-3.0-3.0) Sodium (136-145) mmol/L Potassium (3.5-5.1) mmol/L Chloride (98-107) mmol/L Carbon Dioxide (21.0-32.0) mmol/L BUN (7.0-18.0) mg/dL Creatinine (0.6-1.0) mg/dL Est Cr Clr Drug Dosing mL/min Estimated GFR (MDRD) ml/min Glucose (74-106) mg/dL Calcium (8.5-10.1) mg/dL Total Bilirubin (0.2-1.0) mg/dL AST (15-37) IU/L ALT (14-63) IU/L Alkaline Phosphatase (46-116) U/L Troponin I (0.000-0.056) ng/mL Total Protein (6.4-8.2) g/dL Albumin (3.4-5.0) g/dL Globulin (2.6-4.0) g/dL Albumin/Globulin Ratio (0.9-1.6) HCG, Qual (NEG) SARS CoV-2 RNA Rapid AJAY POSITIVE H (NEGATIVE) Meds: Medications Discontinued Medications Generic Name Dose Route Start Last Admin Trade Name Freq PRN Reason Stop Dose Admin Albuterol/Ipratropium Confirm 01/26/20 08:34 01/26/20 08:40 Duoneb 3.0-0.5 Mg/3 Ml Administered 01/26/20 08:35 3 ml Dose Administration 3 ml .ROUTE .STK-MED ONE Dexamethasone 10 mg 01/26/20 11:49 01/26/20 12:05 Dexamethasone IVPUSH 01/26/20 11:50 10 mg ONETIME ONE Administration Lactated Ringer's 1,000 mls @ 999 mls/hr 01/26/20 09:43 01/26/20 10:07 Ringers, Lactated IV 01/26/20 10:43 999 mls/hr .BOLUS ONE Administration Ceftriaxone Sodium/Dextrose 1 50 mls @ 100 mls/hr 01/26/20 11:47 01/26/20 12:05 gm/ Premix IV 01/26/20 12:16 100 mls/hr ONETIME ONE Administration Iopamidol 100 ml 01/26/20 11:20 01/26/20 11:21 Isovue Multipack-370 (76%) IVPUSH 01/26/20 11:21 100 ml ONETIME STA Administration Racepinephrine 0.5 ml 01/26/20 11:08 01/26/20 11:22 S-2 2.25% NEB 01/26/20 11:09 0.5 ml ONETIME ONE Administration Sodium Chloride 3 ml 01/26/20 11:08 Sodium Chloride 0.9% INH ASDIRECTED PRN mix with racepinephrine neb Departure - Departure Time of Disposition: 11:43 Disposition: DC/Tfer to [facility] Clinical Impression: COVID-19 virus infection, Subglottic edema - Discharge Information Referrals: PCP,None [Primary Care Provider] - Forms: ED Department Discharge Sepsis Event Note (ED) - Evaluation Sepsis Screening Result: Possible Sepsis Risk - Focused Exam Vital Signs: Vital Signs Temp Pulse Resp BP Pulse Ox 01/26/20 09:48 94 18 133/67 98 01/26/20 09:33 86 20 125/68 98 01/26/20 08:52 96 20 121/89 100 01/26/20 08:38 36.7 C 111 H 25 H 145/88 H 99 ED PROCEDURES - Additional/Other Procedure(s) Other (Free Text) Procedure(s): Procedure: Flexible fiberoptic oropharyngoscopy. Indication: Hoarse voice, difficulty swallowing. Procedure text: A flexible fiberoptic bronchoscope was introduced into the posterior oropharynx. The oropharynx, hypopharynx, and laryngeal inlet were visualized without difficulty. No evidence of swelling, mass, or airway shift. Impression: Unremarkable hypopharynx and larynx.
--- NOTE | 2020-01-26 09:15 | CR ---
Chest: 2 views of the chest were obtained. Comparison: No previous chest imaging. Heart size and mediastinum are normal. Lungs are clear with no acute parenchymal change. Bony structures are within normal limits. Upper airway show some tapering. Difficult to exclude subglottic edema. Impression: 1. Upper airway slightly tapered and difficult to exclude subglottic edema. Please correlate with the patient's symptoms. 2. Nothing acute is otherwise seen on 2 view chest x-ray. Diagnostic code #3 This report was dictated in MDT
[2020-01-26] MEDS ORDERED: Lactated Ringers 1,000 ML IV ONE (09:43)
[2020-01-26] MEDS ORDERED: Racepinephrine 2.25% 0.5 ML Neb Soln NEB ONE (11:08)
[2020-01-26] MEDS ORDERED: Sodium Chloride 0.9% Inhalation Soln 3 ML Neb INH PRN (11:08)
[2020-01-26] MEDS ORDERED: Iopamidol 755 MG/ML 500 ML Multipack Bottle IVPUSH STA (11:20)
--- NOTE | 2020-01-26 11:32 | CT ---
CT neck Technique: Multiple axial sections through the neck were obtained. Intravenous contrast was utilized. Findings: Visualized lung apices are clear. Thyroid gland shows no abnormality. Prevertebral soft tissues are felt to be within normal limits. Epiglottis is poorly seen presumably due to surrounding soft tissue swelling. Parotid salivary glands and submandibular salivary glands appear within normal limits. Visualized paranasal sinuses show nothing acute. There appears to be soft tissue thickening within the subglottic area which on the coronal images causes narrowing of the subglottic airway. This appears fairly severe. No other definite areas of edema are seen within the parapharyngeal regions.. Soft tissues appear symmetric between right and left sides. Scattered lymph nodes are seen within the neck which showed no enlargement. Nothing is seen to indicate lymphadenopathy. Bone window settings were reviewed which appear within normal limits for the patient's age. Impression: 1. Subglottic narrowing caused by asymmetric soft tissue thickening most likely representing diffuse swelling. This narrowing is fairly severe. 2. Poorly seen epiglottis presumably from surrounding soft tissue swelling. 3. No additional abnormality is appreciated. Diagnostic code #3 This report was dictated in MDT
--- NOTE | 2020-01-26 11:34 | CT ---
CT chest Technique: Multiple axial sections through the chest were obtained. Intravenous contrast was utilized. Study has been performed as a pulmonary angiogram protocol. Findings: Pulmonary arteries are well opacified. No filling defects are seen to indicate pulmonary embolism. Aorta shows no aneurysm or dissection. Mediastinum and hilar regions show no adenopathy or mass. No pericardial thickening is seen. Visualized upper abdominal structures show nothing acute. Lung window settings shows no acute parenchymal change. No pleural effusions are seen. Bone window settings were reviewed which shows no acute osseous finding. Impression: 1. No findings of pulmonary embolism. 2. Nothing acute is appreciated on CT study of the chest. Diagnostic code #1 This report was dictated in MDT
[2020-01-26] MEDS ORDERED: cefTRIAXone 1 GM in Premix Bag 1 BAG IV ONE (11:47)
[2020-01-26] MEDS ORDERED: Dexamethasone 10 MG/ML SDV IVPUSH ONE (11:49)
== END 2020-01-26 13:25 ==
LOC: MW.ED 08:24
DX: U07.1 COVID-19 (principal); J38.4 Edema of larynx; E66.9 Obesity, unspecified; Z90.49 Acquired absence of other specified parts of digestive tract; Z68.25 Body mass index [BMI] 25.0-25.9, adult; Z91.09 Other allergy status, other than to drugs and biological substances
CPT/HCPCS: 36415; 70491; 71046; 71275; 80053; 82803; 84484; 84703; 85025; 85379; 87635; 93005; 94640; 96361; 96365; 96375; 99285; J0696; J1100; J7120; Q9967; 99283; J7620-GY; U0002

== ENCOUNTER 2021-07-30 17:39 | Inpatient (IN) | payer BC ==
[2021-07-30] MEDS ORDERED: Sodium Chloride 0.9% 20 ML SDV IV PRN (18:06)
[2021-07-30] MEDS ORDERED: Misoprostol 200 MCG Tab PO PRN (18:06)
[2021-07-30] MEDS ORDERED: Methylergonovine 0.2 MG/1 ML Amp IM PRN (18:06)
[2021-07-30] MEDS ORDERED: Water For Irrigation,Sterile 1,000 ML Container IRR PRN (18:06)
[2021-07-30] MEDS ORDERED: Sodium Chloride 0.9% 2.5 ML Syringe FLUSH PRN (18:06)
[2021-07-30] MEDS ORDERED: Lidocaine 1% 50 ML MDV INJECT PRN (18:06)
[2021-07-30] MEDS ORDERED: Tranexamic Acid 1,000 MG in Sodium Chloride 0.9% 100 ML IV PRN (18:06)
[2021-07-30] MEDS ORDERED: Ondansetron 4 MG/2 ML SDV IVPUSH PRN (18:06)
[2021-07-30] MEDS ORDERED: Butorphanol 1 MG/ML SDV IVPUSH PRN (18:06)
[2021-07-30] MEDS ORDERED: Sodium Chloride 0.9% 10 ML Syringe FLUSH PRN (18:06)
[2021-07-30] MEDS ORDERED: Carboprost Tromethamine 250 MCG/1 ML Amp IM PRN (18:06)
[2021-07-30] MEDS ORDERED: Oxytocin/0.9 % Sodium Chloride 30 UNIT/500 ML BAG IV SCH (18:15)
[2021-07-30] MEDS: Lactated Ringers 1,000 ML IV SCH ×3 (18:20→19:10)
[2021-07-30] MEDS ORDERED: fentaNYL 100 MCG/2 ML SDV ONE (18:47)
[2021-07-30] MEDS ORDERED: Ropivacaine 100 ML ONE (18:47)
[2021-07-30] MEDS ORDERED: ePHEDrine 50 MG/ML SDV IVPUSH PRN (19:16)
[2021-07-30] MEDS ORDERED: Witch Hazel Medicated Pads 40/Jar TOP PRN (22:05)
[2021-07-30] MEDS ORDERED: oxyCODONE 5 MG Tab PO PRN (22:05)
[2021-07-30] MEDS ORDERED: Benzocaine/Menthol 20%-0.5% Spray 78 GM Cannister TOP PRN (22:05)
[2021-07-30] MEDS ORDERED: Bisacodyl 10 MG Supp RECTAL PRN (22:05)
[2021-07-30] MEDS ORDERED: Lanolin 100% Cream 7 GM Tube TOP PRN (22:05)
[2021-07-30] MEDS ORDERED: Acetaminophen 500 MG Tab PO PRN (22:05)
[2021-07-30] MEDS ORDERED: Ibuprofen 400 MG Tab PO PRN (22:05)
[2021-07-30] MEDS ORDERED: Docusate Sodium 100 MG Cap PO PRN (22:05)
[2021-07-31] MEDS: Acetaminophen 500 MG Tab PO PRN ×2 (03:42→19:20)
[2021-07-31] MEDS: Ibuprofen 800 MG Tab PO PRN ×2 (07:41→19:19)
[2021-08-01] MEDS: Ibuprofen 800 MG Tab PO PRN (07:36)
== END 2021-08-01 12:25 | disposition home or self-care (01) | DRG 560 ==
LOC: MW.OBCHECK 17:39 → MW.OB 17:39 → MW.OBCHECK 18:06 → MW.OB 18:06 → OBSVTOIN 21:41 → MW.OB 07-31 00:46
PROVIDERS: ADMIT Obstetrics & Gynecology; ATTEND Obstetrics & Gynecology
PROC: 10E0XZZ Delivery of Products of Conception, External Approach (ICD-10-PCS; principal; 2021-07-30)
PROC: 3E0R3BZ Introduction of Anesthetic Agent into Spinal Canal, Percutaneous Approach (ICD-10-PCS; 2021-07-30)
PROC: 00HU33Z Insertion of Infusion Device into Spinal Canal, Percutaneous Approach (ICD-10-PCS; 2021-07-30)
PROC: 10907ZC Drainage of Amniotic Fluid, Therapeutic from Products of Conception, Via Natural or Artificial Opening (ICD-10-PCS; 2021-07-30)
PROC: 3E0234Z Introduction of Serum, Toxoid and Vaccine into Muscle, Percutaneous Approach (ICD-10-PCS; 2021-08-01)
DX: O24.429 Gestational diabetes mellitus in childbirth, unspecified control (principal); Z37.0 Single live birth; O99.62 Diseases of the digestive system complicating childbirth; K21.9 Gastro-esophageal reflux disease without esophagitis; O99.214 Obesity complicating childbirth; Z20.822 Contact with and (suspected) exposure to COVID-19; O26.893 Other specified pregnancy related conditions, third trimester; Z67.11 Type A blood, Rh negative; Z3A.39 39 weeks gestation of pregnancy
CPT/HCPCS: 01967; 36415; 59025; 59409; 82803; 85014; 85018; 85027; 85460; 86592; 86850; 86870; 86900; 86901; A9270-GY; J2590; J2790; J2795; J3010; J7120; U0002

== ENCOUNTER 2023-08-19 04:59 | Inpatient (IN) | payer BC ==
[2023-08-19] MEDS ORDERED: Water For Irrigation,Sterile 1,000 ML Container IRR PRN (05:14)
[2023-08-19] MEDS ORDERED: Sodium Chloride 0.9% 10 ML Syringe FLUSH PRN (05:14)
[2023-08-19] MEDS ORDERED: Methylergonovine 0.2 MG/1 ML Amp IM PRN ×2 (05:14→06:44)
[2023-08-19] MEDS ORDERED: Terbutaline 1 MG/ML SDV SUBCUT PRN (05:14)
[2023-08-19] MEDS ORDERED: Ondansetron 4 MG/2 ML SDV IVPUSH PRN ×2 (05:14→06:44)
[2023-08-19] MEDS ORDERED: Sodium Chloride 0.9% 20 ML SDV IV PRN (05:14)
[2023-08-19] MEDS ORDERED: Sodium Chloride 0.9% 2.5 ML Syringe FLUSH PRN (05:14)
[2023-08-19] MEDS ORDERED: Misoprostol 200 MCG Tab PO PRN ×2 (05:14→06:44)
[2023-08-19] MEDS ORDERED: Misoprostol 25 MCG (1/4 of 100 MCG) Tab VAG PRN (05:14)
[2023-08-19] MEDS ORDERED: Tranexamic Acid IN NACL,ISO-OS 1,000 MG in Premix Bag 1 BAG IV PRN ×2 (05:14→06:44)
[2023-08-19] MEDS ORDERED: Lidocaine 1% 50 ML MDV INJECT PRN ×2 (05:14→06:44)
[2023-08-19] MEDS ORDERED: Carboprost Tromethamine 250 MCG/1 mL Vial IM PRN ×2 (05:14→06:44)
[2023-08-19] MEDS ORDERED: Nalbuphine 10 MG/0.5 ML Syringe IVPUSH PRN (05:14)
[2023-08-19] MEDS ORDERED: Oxytocin/0.9 % Sodium Chloride 30 UNIT/500 ML BAG IV SCH ×2 (05:15→06:45)
[2023-08-19 06:08] LABS: HEMATOCRIT 38.2 % (37.0-47.0); HEMOGLOBIN 13.3 g/dL (12.0-16.0); MEAN CORPUSCULAR HEMOGLOBIN 31.7 pg (28.0-32.0); MEAN CORPUSCULAR HGB CONC 34.8 g/dL (32.0-36.0); MEAN PLATELET VOLUME 10.6 fL (9.4-12.3); PLATELET COUNT,PLT 169 K/uL (150-400); WHITE BLOOD CELL COUNT,WBC 8.28 K/uL (3.9-11.3)
[2023-08-19] MEDS: Lactated Ringers 1,000 ML IV SCH (06:17)
[2023-08-19] MEDS: Oxytocin/0.9 % Sodium Chloride 30 UNIT/500 ML BAG IV SCH (06:33)
[2023-08-19] MEDS ORDERED: Butorphanol 2 MG/ML SDV IVPUSH PRN (06:44)
[2023-08-19] MEDS ORDERED: Lactated Ringers 1,000 ML IV SCH (06:45)
[2023-08-19] MEDS ORDERED: ePHEDrine 50 MG/ML SDV IVPUSH PRN ×2 (08:13)
[2023-08-19] MEDS ORDERED: Phenylephrine HCl 0.5 MG/5 ML AMP IVPUSH PRN (08:13)
[2023-08-19] MEDS: Ropivacaine HCl/PF 400 MG in Premix Bag 1 BAG EPIDUR SCH (12:23)
[2023-08-19] MEDS ORDERED: dexmedeTOMIDine HCl 200 MCG/2 ML SDV ONE (12:25)
[2023-08-19] MEDS ORDERED: oxyCODONE 5 MG Tab PO PRN (14:42)
[2023-08-19] MEDS ORDERED: Lanolin 100% Cream 7 GM Tube TOP PRN (14:42)
[2023-08-19 15:05] LABS: PH,UMBILICAL ARTERIAL 7.294 (7.18-7.38); PH,UMBILICAL VENOUS 7.314 (7.25-7.45)
[2023-08-19] MEDS: Benzocaine/Menthol 20%-0.5% Spray 78 GM Cannister TOP PRN (16:00)
[2023-08-19] MEDS: Witch Hazel Medicated Pads 40/Jar TOP PRN (16:00)
[2023-08-19] MEDS: Acetaminophen 500 MG Tab PO PRN (23:34)
[2023-08-19] MEDS: Docusate Sodium 100 MG Cap PO PRN (23:34)
[2023-08-20] MEDS: Ibuprofen 800 MG Tab PO PRN (02:06)
[2023-08-20 05:51] LABS: HEMATOCRIT 36.9 % (37.0-47.0); HEMOGLOBIN 12.4 g/dL (12.0-16.0)
== END 2023-08-20 18:33 | disposition home or self-care (01) | DRG 560 ==
LOC: UNDOADMOB 04:59 → MW.OB 04:59 → OBSVTOIN 05:14 → MW.OB 17:30
PROVIDERS: ADMIT Obstetrics & Gynecology; ATTEND Obstetrics & Gynecology
PROC: 10E0XZZ Delivery of Products of Conception, External Approach (ICD-10-PCS; principal; 2023-08-19)
PROC: 3E033VJ Introduction of Other Hormone into Peripheral Vein, Percutaneous Approach (ICD-10-PCS; 2023-08-19)
DX: O80 Encounter for full-term uncomplicated delivery (principal); Z37.0 Single live birth; Z3A.39 39 weeks gestation of pregnancy
CPT/HCPCS: 01967; 36415; 59025; 59409; 82803; 85014; 85018; 85027; 85460; 86592; 86850; 86870; 86900; 86901; A9270-GY; J2590; J2790; J2795; J3490; J7120